=== PATIENT | female | born 1955 | race Caucasian/White ===

== ENCOUNTER 2024-12-01 11:22 | Emergency (ER) | payer MEDICARE, SELFPAY ==
--- NOTE | 2024-12-01 11:32 | ED_ITS ---
HPI - Ear Problem General Chief complaint: Ear Stated complaint: Earache Time Seen by Provider: 12/01/24 11:42 Source: patient and RN notes reviewed Mode of arrival: ambulatory Limitations: no limitations History of Present Illness HPI Narrative: 69-year-old female presents with concern for decreased hearing in the right ear. Reports she saw her doctor because she was having trouble hearing a few months ago and he told her she had a wax buildup. She has been using peroxide at home occasionally without relief. She reports of the last few days she has had some discomfort when she pushes on the tragus. She denies upper respiratory symptoms. She denies drainage med. MD Complaint: ear pain Related Data Home Medications ?Medication ?Instructions ?Recorded ?Confirmed ?Last Taken ?Type Vitamin D (with calcium) 12/01/24 Unknown History levothyroxine 150 mcg tablet mcg 12/01/24 Unknown History lorazepam 1 mg tablet mg 12/01/24 Unknown History meloxicam 15 mg tablet mg 12/01/24 Unknown History metoprolol succinate 25 mg mg PO 12/01/24 Unknown History tablet,extended release 24 hr sertraline 12/01/24 Unknown History sertraline 100 mg tablet mg 12/01/24 Unknown History simvastatin 40 mg tablet mg 12/01/24 Unknown History Allergies Allergy/AdvReac Type Severity Reaction Status Date / Time iv contrast Allergy Intermediate Hives Uncoded 12/01/24 11:41 Review of Systems Review of Systems: CONSTITUTIONAL: Denies malaise, chills, sweats, or fever. EYES: Denies visual changes, redness, or discharge. ENT: Denies rhinorrhea, congestion, sinus pain, and sore throat. Reports decreased hearing and tragal tenderness in the right ear CARDIOVASCULAR: Denies chest pain, palpitations, or edema. RESPIRATORY: Denies cough. Denies dyspnea. GASTROINTESTINAL: Denies abdominal pain, nausea, vomiting, diarrhea SKIN: Denies rash or itching. MUSCULOSKELETAL: Denies myalgia. NEUROLOGIC: Denies headache. All systems reviewed & are unremarkable except as noted in HPI and below PMFSH Comments At time of signature, agree with nursing past medical, surgical, social and family history. There is no relevant family history pertinent to the presenting complaint Exam Narrative: GENERAL: Well-appearing, well-nourished, and in no acute distress. HEAD: Normocephalic EYES: PERRLA, conjunctivae clear ENT: Nares clear. Mucous membranes moist. TM pearly moses with sharp light reflex on the left, right TM not visible due to excess room; no right or left tragal tenderness. NECK: Supple. No lymphadenopathy CHEST: No respiratory distress, speaks in full sentences. HEART: Regular rate and rhythm. No murmur heard. SKIN: Warm, dry, no rash. NEURO: Alert and oriented x3. PSYCH: Normal mood and affect Course Course Emergency Course: Patient is aware of diagnosis, understands and agrees to treatment plan. Anticipatory guidance given. Patient agrees to follow-up as directed and is aware of reasons to seek care at the emergency department. Portions of this record may have been created with voice recognition software Level of Care: [facility] Emergency Department Visit Vital Signs Vital signs: Reviewed. Procedures Ear Wax Removal Right Ear: Ear Wax Removal Date: 12/01/24 Ear Wax Removal Time: 11:53 Cerumenolytic Used: other (Hydrogen peroxide) Results: Re-examined: some cerumen remains TM Examination: TM(s) intact, normal appearance Ear Canal Exam: other (excoriated) Patient Tolerated Procedure: well Complications: no problems Technique: ear canal irrigated and ear canal curetted Additional Comments: Procedure discontinued due to excoriation. Debrox prescribed. Patient reports hearing is better. Medical Decision Making MDM Narrative Medical decision making narrative: I evaluated this in the [facility]. History is obtained from patient who is an independent historian and physical exam was performed.? Available medical records were reviewed. ? Exam findings and relevant testing show no acute concerns or changes; patient is non-toxic appearing and is in no distress. Differential diagnosis considered: Huynh virus, strep pharyngitis, allergic rhinitis, upper respiratory tract infection, sinusitis, rhinosinusitis, nasopharyngitis. viral pharyngitis, otitis media, otitis externa, otitis effusion, cerumen impaction, foreign body. Exam findings show no acute concerns or changes; patient is non-toxic appearing and is in no distress. Patient is appropriate for outpatient treatment and follow-up. ? Differential diagnosis and treatment plan were discussed with the patient. Patient agrees with discussion and after shared medical decision making agrees with plan of care. All questions were answered to the patient's satisfaction. Patient is appropriate for outpatient treatment and follow-up. Critical Care Time Critical Care Time Critical Care Time: No Discharge Plan Discharge Clinical Impression: Cerumen impaction Patient Disposition: Home Condition: Stable Instructions: General Patient Instructions Additional Instructions: Ear wax impaction is when ear wax builds up enough to cause symptoms. Normally, ear wax helps to protect the insides of the ears and prevents injury or infection. But having too much ear wax can cause symptoms such as pain and trouble hearing. The medical term for ear wax is cerumen. The insides of the ears do not usually need to be cleaned. Sticking anything into the ears can push the wax in deeper and cause impaction. How is ear wax impaction treated? There are several treatments to remove impacted ear wax. Treatment is usually only needed if the impaction is causing bothersome symptoms. Treatment is not recommended for removing ear wax in people who have no symptoms, even if their ears are impacted. There are several different ways to remove ear wax: ?Ear drops - Special ear drops can soften ear wax and help it to drain out. Ear drops are not usually safe for people with an ear infection or damage to the eardrum. ?Rinsing - In some cases, a doctor or nurse can remove impacted ear wax by squirting water (or a special liquid) into the ear to rinse it out. ?Special tools - A doctor or nurse might use a special tool to remove ear wax. There are different types of tools that can do this safely. These include small sticks, hooks, and spoons. There are also tools that use suction to pull the wax out. If you have recurrent cerumen impaction and no significant ear disease, you can use hydrogen peroxide to soften the wax so it comes out on its own. Do not put any tools on q-tips into your ears. Please use any drops that may have been prescribed to you. Follow up with your doctor if you have any new symptoms or concerns. Patient Language: Romanian Prescriptions: New Debrox 6.5 % drops 10 drp RIGHT EAR Q12H 4 Days Qty: 15 0RF No Action meloxicam 15 mg tablet sertraline 100 mg tablet levothyroxine 150 mcg tablet metoprolol succinate 25 mg tablet extended release 24 hr PO lorazepam 1 mg tablet sertraline simvastatin 40 mg tablet Vitamin D (with calcium) Follow-up/Referrals: Kathy,Cliff Ulloa MD [Primary Care Provider] - Time of Disposition: 12:30
--- OUTSIDE RECORDS SUMMARY | 2024-12-01 11:35 | XMS_ITS | Encounter Summary ---
Author Organization [facility] Health Address [address] [place] [address] Care Team Providers Care Poultry Tender Name Role Phone Cliff Lowry MD Primary Care Provider [phone] Encounter Details Date Type Department Care Team (Late st Contact Info) Description 08/07/2022 Lab Requisition [facility] [address] [place] [id number] Cm Méndez Jr., MD [address] [place] [address] Social History Tobacco Use Types Packs/Day Years Used Date Smoking Tobacco: Every Day Cigarettes 0.3 50 Smokeless Tobacco: Never Alcohol Use Standard Drinks/Week Comments Yes 0 (1 standard drink = 0.6 oz pur e alcohol) once every 2 months AUDIT-C Answer Date Recorded Q1: How often do you have a drink containing alc ohol? Monthly or less 10/31/2021 Q2: How many drinks containi ng alcohol do you have on a typical day when you are drinking? 1 or 2 10/31/2021 Q3: How often do you have si x or more drinks on one occasion? 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 Answer Date of Assessment Author No 11/01/2021 12:42 PM CDT Daron Viri radha Glez RN * Is person blind or have serious difficulty seeing? Answer Date of Assessment Author No 11/01/2021 12:42 PM CDT Daron Viri radha Glez RN * Does person have serious difficulty walking/climbing stairs? Answer Date of Assessment Author No 11/01/2021 12:42 PM CDT Daron Viri radha Glez RN * Does person have difficulty dressing/bathing? Answer Date of Assessment Author No 11/01/2021 12:42 PM CDT Daron Viri radha Glez RN * Does person have difficulty doing errands alone? Answer Date of Assessment Author Yes 11/01/2021 12:42 PM CDT Viri Neri RN documented as of this encounter Mental Status * Does person have difficulty concentrating/remembering/making decisions? Answer Entry Date Author No 11/01/2021 12:42 PM CDT Viri Neri RN documented in this encounter Plan of Treatment Not on file documented as of this encounter Procedures Procedure Name Priority Date/Time Associated Diagnosis Comments DERMATOPATHOLOGY Routine 08/06/2022 12:0 0 AM CDT documented in this encounter Results * DERMATOPATHOLOGY (08/06/2022 12:00 AM CDT) Case Report Dermatopathology Report Case: [id number] Authorizing Provider: Cm Méndez Jr., MD Collected: 08/06/2022 12:00 AM Ordering Location: [facility] Received: 08/07/2022 01:09 PM Pathologist: Denice Dempsey MD Specimen: Skin, left mid-upper back 3 3:35 PM CDT DERMATOPATHOLOGY LABORATORY Final Diagnosis Specimen A. SKIN, left mid-upper back: EPIDERMOID CYST WITH EVIDENCE OF RUPTURE (L72.0) NOT PRESENT AT MARGIN DERMAL SCAR (L90.5) (see microscopic description) 3 3:35 PM CDT DERMATOPATHOLOGY LABORATORY at 1535 CDT Clinical History Cyst Check margins 3 3:35 PM CDT DERMATOPATHOLOGY LABORATORY Gross Description Specimen A: Received is one formalin filled container labeled with the patient's name and designated left mid-upper back. The specimen consists of a non-oriented ellipse of skin measuring [id number] mm. The epidermal surface is unremarkable. The margin is inked green. The 12 o'clock and 6 o'clock tips are submitted in cassette 1. The remainder of the ellipse is serially sectioned and submitted in cassette 2-4. Jar 0. 3 3:35 PM CDT DERMATOPATHOLOGY LABORATORY Microscopic Description Specimen A. SKIN, left mid-upper back: Within the dermis, there is a space lined by epithelium that resembles normal epidermis and the infundibular portion of the hair follicle. Surrounding this is an infiltrate with neutrophils, histiocytes, and multinucleated giant cells. This lesion is not present at the margin of the specimen. There are fibroblasts and collagen bundles oriented parallel to the skin surface with elongated blood vessels, some of which are oriented perpendicular to the skin surface. These scar-like changes are present at the margin of the specimen. 3 3:35 PM CDT DERMATOPATHOLOGY LABORATORY Disclaimer An external and internal positive and negative controls are appropriate for the histochemical, immunohistochemical and immunofluorescence stain(s) in this case (if any), except where stated explicitly. The performance characteristics of the stain(s) cited in this report were developed and its performance characteristic determined by the Dermatopathology Laboratory at [facility], directed by Dr. Quang Quinones. These tests need not be, and therefore are not, approved by the [place] Food and Drug Administration. The tests are used for clinical purposes. Billing Codes Specimen Charges Stain Charges 89264 1 3 3:35 PM CDT DERMATOPATHOLOGY LABORATORY Embedded Images 3 3:35 PM CDT DERMATOPATHOLOGY LABORATORY Pathology/Cytolog y TISSUE SPECIMEN FROM SKIN / Unknown 08/06/2022 08/07/2022 1:09 PM CDT Cm Méndez Jr., MD LAB - PATHOLOGY/CYTOLOG Y ORDERABLES Final Result DERMATOPATHOLOGY LABORATORY [facility] - Department of Dermatology [facility] Special[facility] [address] [place], [place] [id number] [place] [address] documented in this encounter Visit Diagnoses Not on filedocumented in this encounter Care Teams Poultry Tender Relationship Specialty [place] [address] [address] [facility] [address] [place] [address] PCP - General Internal Medicine 07/31/21 documented as of this encounter
--- OUTSIDE RECORDS SUMMARY | 2024-12-01 11:35 | XMS_ITS | Referral Summary ---
Author Organization [facility] Address [address] [place] [address] Care Team Providers Care Orthoptist Name Role Phone Rolando Patel MD Primary Care Provider + Allergies Active Allergy Reactions Criticality Noted Date Comments Iodinated Contrast Media Other (See comments) Low 10/03/2021 Reports that with IVP dye, she reports that during procedure she broke out in hives Iodine Hives Medium 09/30/2022 Medications HYDROcodone-acet aminophen (NORCO) 5-325 mg per tablet TAKE ONE TABLET BY MOUTH THREE TIMES A DAY NEEDED 05/01/2020 Active cyclobenzaprine (FLEXERIL) 10 mg tablet Take by mouth 3 (three) times a day as needed 03/24/2020 Active hydroCHLOROthiaz rosita (HYDRODIURIL) 25 mg tablet Take 1 tablet (25 mg total) by mouth daily 02/29/2020 Active LORazepam (ATIVAN) 1 mg tablet Take 1 tablet (1 mg total) by mouth 3 (three) times a day as needed 02/24/2020 Active meloxicam (MOBIC) 15 mg tablet Take 1 tablet (15 mg total) by mouth daily 02/29/2020 Active sertraline (ZOLOFT) 100 mg tablet TAKE 1 TABLET BY MOUTH EVERY DAY AT NIGHT 02/24/2020 Active simvastatin (ZOCOR) 40 mg tablet Take 1 tablet (40 mg total) by mouth daily 02/24/2020 Active levothyroxine (SYNTHROID) 150 mcg tablet 08/17/2023 Active metoprolol XL (TOPROL-XL) 25 mg extended release tablet Take 1 tablet (25 mg total) by mouth daily 90 tablet 3 05/07/2024 Active Active Problems Problem Noted Date Diagnosed Date Palpitations 05/07/2024 PVC (premature ventricular contraction) 05/07/20 Primary hypertension 05/07/2024 Mixed hyperlipidemia 05/07/2024 Encounter for screening colonoscopy 05/29/2020 Overview (05/29/2020): Added automatically from request for surgery [id number] Morbid obesity with BMI of 40.0-44.9, adult 04/26 Primary osteoarthritis of left knee 05/22/2020 Social History Tobacco Use Types Packs/Day Years Used Date Smoking Tobacco: Former Smokeless Tobacco: Never Tobacco Cessation:Counseling Given: Not Answered Alcohol Use Standard Drinks/Week Comments Yes 0 (1 standard drink = 0.6 oz pur e alcohol) Comments No Sex and Gender Information Value Date Recorded Sex Assigned at Not on file Legal Sex Female 11:58 PM FIRE OPERATIONS FORESTER Gender Identity Female 11/08/2022 10:05 AM CDT Sexual Orientation Straight 11/08/2022 10 :05 AM CDT Last Filed Vital Signs Vital Sign Reading Time Taken Comments Blood Pressure 145/77 05/07/2024 10:11 AM FIRE OPERATIONS FORESTER Lg. Adult Cuff Pulse 86 05/07/2024 10:11 AM FIRE OPERATIONS FORESTER Temperature 36.3 C (97.4 F) 06/26/2020 11:58 AM FIRE OPERATIONS FORESTER Respiratory Rate 16 05/07/2024 10:1 1 AM FIRE OPERATIONS FORESTER Oxygen Saturation 94% 11/11/2022 12: 59 PM CDT Inhaled Oxygen Concentration - - Weight 84.6 kg (186 lb 6.4 oz) 05/07/2024 10:11 AM FIRE OPERATIONS FORESTER Height 162.6 cm (5' 4) 05/07/2024 10:1 1 AM FIRE OPERATIONS FORESTER Body Mass Index 32 05/07/2024 10:11 AM FIRE OPERATIONS FORESTER Plan of Treatment Not on file Procedures Procedure Name Priority Date/Time Associated Diagnosis Comments DEXA AXIAL SKELETON BONE DENSITY 1 OR MORE SITES Schedule Routine, Read Routine (OP Routine) 11/04/2023 10:40 AM CDT exterminator helper termite (current) use of bisphosphonates SCREENING MAMMOGRAM BILATERAL W MATT Schedule Routine, Read Routine (OP Routine) 06/05/2023 1:21 PM FIRE OPERATIONS FORESTER Encounter for screening mammogram for malignant neoplasm of breast COLONOSCOPY 06/26/2020 9:55 AM FIRE OPERATIONS FORESTER from Last 3 Months or Most Recently Relevant to Health Maintenance Results * Dexa Axial Skeleton Bone Density 1 or 2 Site (11/04/2023 10:40 AM CDT) Anatomical Region Laterality Modality Body N/A Other 11/04/2023 11:2 8 PM CDT Narrative 11/04/2023 11:29 PM CDT EXAM DESCRIPTION: DEXA AXIAL SKELETON BONE DENSITY 1 OR MORE SITES REASON FOR STUDY: 68 y/o year old F with given history of: Z79.83 Osteoporosis screening Post menopausal Ampoule Filler/Model: cashcloud SL (S/N [id number]) CLINICAL INFORMATION: Current height: 63 inches Maximum height: 64 inches Weight: 200 pounds Risk factors: Postmenopausal, secondary osteoporosis, cancer COMPARISON: 04/19/2020 Dissimilar scan types or analysis methods precludes assessment for calculating a significant change. FINDINGS: AP LUMBAR SPINE L1-L4: Total BMD is 1.035 g/cm2 T-score is -0.1 LEFT HIP: Total BMD is 0.814 g/cm2 T-score is -1.0 Femoral neck BMD is 0.634 g/cm2 T-score is -1.9 FRAX: 10 year risk for a major osteoporotic fracture is 10 %, 10 year risk for a hip fracture is 1.7 % IMPRESSION: Low Bone Mass. REFERENCE: Bone mineral density: T-Score: Normal (T-score above or = -1.0) Low bone mass (T-score between -1.0 and -2.5) replaces the previously used term osteopenia Osteoporosis (T-score = or below -2.5) Z-Score: Within the expected range for age (Z-score above -2.0) Below the expected range for age (Z-score is -2.0 or below) Please see below follow up recommendations. Medical evaluation for secondary causes of low bone mineral density may be appropriate. FRAX is a World Health Organization validated fracture risk assessment tool that calculates a person's 10 year probability of a major osteoporosis related fracture and hip fracture. According to the National Osteoporosis Foundation guidelines, postmenopausal women and men age 50 or older with low bone mass and a 10 year probability of a major osteoporosis related fracture = or greater than 20% or a 10 year probability of a hip fracture = or greater than 3% should be considered for pharmacological treatment for the prevention of osteoporosis. For further information, including treatment recommendations, please refer to the 2019 ISCD Official Positions (http://www.iscd.org) and the NOF's Clinician's Guide to Prevention and Treatment of Osteoporosis (http://www.nof.org/professionals/clinical-guidelines) THIS IS AN ELECTRONICALLY VERIFIED FINAL REPORT 11/04/2023 11:29 PM - Electronically signed by Derek Ross M.D. MF: ROBERT Report ID: [id number] Reading Location: [place] [address] Procedure Note Derek Ross MD - 11/04/2023 EXAM DESCRIPTION: DEXA AXIAL SKELETON BONE DENSITY 1 OR MORE SITES REASON FOR STUDY: 68 y/o year old F with given history of: Z79.83 Osteoporosis screening Post menopausal Ampoule Filler/Model: cashcloud SL (S/N [id number]) CLINICAL INFORMATION: Current height: 63 inches Maximum height: 64 inches Weight: 200 pounds Risk factors: Postmenopausal, secondary osteoporosis, cancer COMPARISON: 04/19/2020 Dissimilar scan types or analysis methods precludes assessment for calculating a significant change. FINDINGS: AP LUMBAR SPINE L1-L4: Total BMD is 1.035 g/cm2 T-score is -0.1 LEFT HIP: Total BMD is 0.814 g/cm2 T-score is -1.0 Femoral neck BMD is 0.634 g/cm2 T-score is -1.9 FRAX: 10 year risk for a major osteoporotic fracture is 10 %, 10 year risk for ahip fracture is 1.7 % IMPRESSION: Low Bone Mass. REFERENCE: Bone mineral density: T-Score: Normal (T-score above or = -1.0) Low bone mass (T-score between -1.0 and -2.5) replaces thepreviously used term osteopenia Osteoporosis (T-score = or below -2.5) Z-Score: Within the expected range for age (Z-score above -2.0) Below the expected range for age (Z-score is -2.0 or below) Please see below follow up recommendations. Medical evaluation forsecondary causes of low bone mineral density may be appropriate. FRAX is a World Health Organization validated fracture risk assessmenttool that calculates a person's 10 year probability of a major osteoporosisrelated fracture and hip fracture. According to the National OsteoporosisFoundation guidelines, postmenopausal women and men age 50 or older with low bonemass and a 10 year probability of a major osteoporosis related fracture = or greater than 20% or a 10 year probability of a hip fracture = or greaterthan 3% should be considered for pharmacological treatment for the preventionof osteoporosis. For further information, including treatment recommendations, please referto the 2019 ISCD Official Positions (http://www.iscd.org) and the NOF's Clinician's Guide to Prevention and Treatment of Osteoporosis (http://www.nof.org/professionals/clinical-guidelines) THIS IS AN ELECTRONICALLY VERIFIED FINAL REPORT 11/04/2023 11:29 PM - Electronically signed by Derek Ross M.D. MF: ROBERT Report ID: [id number] Reading Location: [place] [address] Rolando Patel MD IM DXA PROCEDURES Final Result * Screening Mammogram Bilateral W Matt (06/05/2023 1:21 PM FIRE OPERATIONS FORESTER) Anatomical Region Laterality Modality Breast Bilateral Mammography 06/05/2023 1:32 PM FIRE OPERATIONS FORESTER Impressions 06/05/2023 1:32 PM FIRE OPERATIONS FORESTER There is no mammographic evidence of malignancy. A 1 year screening mammogram is recommended. BI-RADS: 1 - Negative. The patient has been or will be contacted. The patient will be entered into a reminder system with a target due date of 1 year for her next mammogram. Electronically signed by: EMERSON Padilla 06/05/2023 1:32 PM FIRE OPERATIONS FORESTER EXAMINATION: SCREENING MAMMOGRAM BILATERAL W MATT ORDERING HEALTHCARE PROVIDER: ROLANDO PATEL HISTORY: Routine screening mammography. COMPARISON: 06/03/2022, 04/19/2020. TECHNIQUE: CC and MLO views of both breasts were obtained with digital technique using digital breast tomosynthesis with C view. Computer aided detection was utilized. FINDINGS: DENSITY: The breasts have scattered areas of fibroglandular density. BREASTS: There is no new suspicious finding in either breast on mammogram. us Rolando Patel MD IMG MAMMO PROCEDURES Fin al Result * COLONOSCOPY (06/26/2020 9:55 AM FIRE OPERATIONS FORESTER) Anatomical Region Laterality Modality Other Narrative Procedure Note Javid Flood MD - 06/26/2020 9:55 AM CST [facility] Patient Name: Charlotte Alcantara Procedure Date: 06/26/2020 9:55 AM Date of : 1955 Admit Type: Outpatient Age: 64 Gender: Female Attending MD: Javid Flood M.D. Room: [facility] ENDOSCOPY ROOM 2 Note Status: Finalized Patient Profile: Refer to note in patient chart for documentation of history and physical. Procedure: Colonoscopy Indications: High risk colon cancer surveillance: Personalhistory of colonic polyps, Last colonoscopy: 2014 Referring MD: Rolando Patel M.D. Providers: Javid Flood M.D. Impression: - Hemorrhoids found on perianal exam. - Diverticulosis in the sigmoid colon and in the descending colon. - The examination was otherwise normal. - No specimens collected. Recommendation: - Discharge patient to home. - Resume previous diet. - Continue present medications. - Repeat colonoscopy in 5 years for surveillance. - Return to primary care physician as previously scheduled. Medicines: Propofol per Anesthesia Complications: No immediate complications. Estimated Blood Loss: Estimated blood loss: none. Procedure: Pre-Anesthesia Assessment: - This assessment was completed [Time ofAssessment] prior to the administration of sedation. The benefits, risks and alternatives of theprocedure and sedation were discussed and informed consentwas obtained. All questions were answered. Please referto the signed informed consent document in the medical record. The bowel preparation used was Miralax via single dose instruction. The bowel preparation used was bisacodyl tablets [Single vs Split Dose]. The scope was passed under direct vision. TheColonoscope [id number] was introduced through the anus and advanced to the the cecum, identified by appendiceal orifice and ileocecal valve. The colonoscopy was unusually difficult due to multiple diverticula in the colon, poor bowel prep and the patient's body habitus. The patient tolerated the procedure well. The quality of the bowelpreparation was adequate to identify polyps 6 mm and larger in size. Findings: Hemorrhoids were found on perianal exam. Multiple small and large-mouthed diverticula were found in thesigmoid colon and descending colon. The exam was otherwise without abnormality. Electronically signed by Javid Flood M.D. Javid Flood M.D. 06/26/2020 11:30:19 AM Number of Addenda: 0 Note Initiated On: 06/26/2020 9:55 AM Procedure Code(s): --- Professional --- G0105, Colorectal cancer screening; colonoscopy on individual at high risk Diagnosis Code(s): --- Professional --- K57.30, Diverticulosis of large intestine without perforation orabscess without bleeding K64.9, Unspecified hemorrhoids Z86.010, Personal history of colonic polyps CPT copyright 2019 [employer]. All rights reserved. The codes documented in this report are preliminary and upon division roadmaster reviewmay be revised to meet current compliance requirements. Recognized by the [place] [employer] for promoting quality in endoscopy Javid Flood MD ENDOSCOPY PROCEDURES Final Re sult from Last 3 Months or Most Recently Relevant to Health Maintenance Insurance MEDICARE [facility] Address: [facility] [address] [place] [address] [employer] SENIOR SUPPLEMENT COMMERCIAL GENERIC MEDICARE [facility] [address] [place] [id number] MEDICARE [employer] SENIOR SUPPLEMENT Advance Directives For more information, please contact: [phone] * Full Code (Latest Code Status on File) Date Activated Date Inactivated Comments 06/26/2020 10:03 AM 06/26/2020 4:27 PM Care Teams Orthoptist Relationship Specialty [place] [id number] [address] [facility] [place] [address] PCP - General Internal Medicine 04/12/20
--- OUTSIDE RECORDS SUMMARY | 2024-12-01 11:35 | XMS_ITS | Clinical Summary ---
Author Organization [facility] Address [address] [place] [address] Care Team Providers Care Egg Sorter Name Role Phone Cliff Patel MD Primary Care Provider + Allergies [...] (05/29/2020): Added automatically from request for surgery [id number] Morbid obesity with BMI of 40.0-44.9, adult 04/26 Primary osteoarthritis of left knee 05/22/2020 Surgical History Surgery Date Site/Laterality Comments KNEE ARTHROSCOPY THYROID LOBECTOMY COLONOSCOPY 05/26/2014 - 05/25/2015 Medical History Medical History Date Comments Depression Infectious viral hepatitis Thyroid disease Cancer (HCC) Thyroid cancer (HCC) 2002 Smoking previous Colon polyp Chronic constipation Hyperlipidemia Hypothyroidism Family History Medical History Relation Name Comments Cancer Other Hypertension Other Relation Name Status Comments Other Social History Tobacco Use Types Packs/Day Years Used Date Smoking Tobacco: Former Smokeless Tobacco: Never Tobacco Cessation:Counseling Given: Not Answered Alcohol Use Standard Drinks/Week Comments Yes 0 (1 standard drink = 0.6 oz pur e alcohol) Comments No Sex and Gender Information Value Date Recorded Sex Assigned at Not on file Legal Sex Female 11:58 PM SEASONING MIXER Gender Identity Female 11/08/2022 10:05 AM CDT Sexual Orientation Straight 11/08/2022 10 :05 AM CDT Obstetrics History Para Term AB IAB SAB Ectopic Multiple Livin g Live Births 1 1 1 Date Outcome GA Total Labor Labor/2nd/3rd Weight Sex Type Anes PTL Rosanne A1 A5 Name Clin Term Last Filed Vital Signs Vital Sign Reading Time Taken Comments Blood Pressure 145/77 05/07/2024 10:11 AM SEASONING MIXER Lg. Adult Cuff Pulse 86 05/07/2024 10:11 AM SEASONING MIXER Temperature 36.3 C (97.4 F) 06/26/2020 11:58 AM SEASONING MIXER Respiratory Rate 16 05/07/2024 10:1 1 AM SEASONING MIXER Oxygen Saturation 94% 11/11/2022 12: 59 PM CDT Inhaled Oxygen Concentration - - Weight 84.6 kg (186 lb 6.4 oz) 05/07/2024 10:11 AM SEASONING MIXER Height 162.6 cm (5' 4) 05/07/2024 10:1 1 AM SEASONING MIXER Body Mass Index 32 05/07/2024 10:11 AM SEASONING MIXER Plan of Treatment Health Maintenance Due Date Last Done Comments Depression Screening 1955 Hepatitis C Screening 1955 DTaP/Tdap/Td Vaccine (1 - Tdap) 1965 Hepatitis B Screening 1972 Zoster Vaccine (1 of 2) 2004 Well Visit 65+ 08/29/2019 Pneumococcal vaccine 65+ (2 of 2 - PPSV23) 03/02/2021 03/02/2020 Fall Risk Assessment 06/26/2021 06/26/2020 Breast Cancer Screening-Mammogram 06/05/2024 06/05/2023, 06/03/2022, 04/19/2020 Influenza Vaccine (#1) 2025 03/02/2020 Osteoporosis Screening-Bone Density Scan 11/03/2025 11/04/2023, 04/19/2020 Colon Cancer Screening-Colonoscopy 06/26/20302020 Procedures Procedure Name Priority Date/Time Associated Diagnosis Comments DEXA AXIAL SKELETON BONE DENSITY 1 OR MORE SITES Schedule Routine, Read Routine (OP Routine) 11/04/2023 10:40 AM CDT 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 MF: ROBERT Report ID: [id number] Reading Location: [place] [address] Procedure Note Derek Ross MD - 11/04/2023 EXAM DESCRIPTION: DEXA AXIAL SKELETON BONE DENSITY 1 OR MORE SITES REASON FOR STUDY: 68 y/o year old F with given history of: Z79.83 Osteoporosis screening Post menopausal Food And Drug Inspector/Model: [employer] (S/N [id number]) CLINICAL INFORMATION: Current height: 63 inches Maximum [...] Derek Ross M.D. MF: ROBERT Report ID: [id number] Reading Location: [place] [address] us Cliff Patel MD IMG DXA PROCEDURES Final Result * Screening Mammogram Bilateral W Matt (06/05/2023 1:21 PM SEASONING MIXER) Anatomical Region Laterality Modality Breast Bilateral Mammography 06/05/2023 1:32 PM SEASONING MIXER Impressions 06/05/2023 1:32 PM SEASONING MIXER There is no mammographic evidence of malignancy. A 1 year screening mammogram is recommended. BI-RADS: 1 - Negative. The patient has been or will be contacted. The patient will be entered into a reminder system with a target due date of 1 year for her next mammogram. Electronically signed by: EMERSON Padilla 06/05/2023 1:32 PM SEASONING MIXER EXAMINATION: SCREENING MAMMOGRAM BILATERAL W MATT ORDERING HEALTHCARE PROVIDER: CLIFF PATEL HISTORY: Routine screening mammography. COMPARISON: 06/03/2022, 04/19/2020. TECHNIQUE: CC and MLO views of both breasts were obtained with digital technique using digital breast tomosynthesis with C view. Computer aided detection was utilized. FINDINGS: DENSITY: The breasts have scattered areas of fibroglandular density. BREASTS: There is no new suspicious finding in either breast on mammogram. us Cliff Patel MD IMG MAMMO PROCEDURES Fin al Result * COLONOSCOPY (06/26/2020 9:55 AM SEASONING MIXER) Anatomical Region Laterality Modality Other Narrative Procedure Note Javid Flood MD - 06/26/2020 9:55 AM CST [facility] Patient Name: Charlotte Alcantara Procedure Date: 06/26/2020 9:55 AM Date of : 1955 Admit Type: Outpatient Age: 64 Gender: Female Attending MD: Javid Flood M.D. Room: [facility] ENDOSCOPY ROOM 2 Note Status: Finalized Patient Profile: Refer to note in patient chart for documentation of history and physical. Procedure: Colonoscopy Indications: High risk colon cancer surveillance: Personalhistory of colonic polyps, Last colonoscopy: 2014 Referring MD: Cliff Patel M.D. Providers: Javid Flood M.D. Impression: [...] scope was passed under direct vision. TheColonoscope [id number] was introduced through the anus and advanced [...] history of colonic polyps CPT copyright 2019 [employer]. All rights reserved. The codes documented in this report are preliminary and upon service desk associate reviewmay be revised to meet current compliance requirements. Recognized by the [place] [employer] for promoting quality in endoscopy Javid Flood MD ENDOSCOPY PROCEDURES Final Re sult from Last 3 Months or Most Recently Relevant to Health Maintenance Insurance MEDICARE [employer] SENIOR SUPPLEMENT COMMERCIAL GENERIC MEDICARE MEDICARE [employer] SENIOR SUPPLEMENT Advance Directives For more information, please contact: [phone] * Full Code (Latest Code Status on File) Date Activated Date Inactivated Comments 06/26/2020 10:03 AM 06/26/2020 4:27 PM Care Teams Egg Sorter Relationship Specialty [place] [id number] [place] [address] PCP - General Internal Medicine 04/12/20
--- OUTSIDE RECORDS SUMMARY | 2024-12-01 11:35 | XMS_ITS | Clinical Summary ---
Author Organization [facility] Address [address] [place] [address] Care Team Providers Care Rivet Hole Puncher Name Role Phone Cliff Lowry MD Primary Care Provider [phone] [facility],non-owned Affiliates and Associated Physician Practices is amultiple site organization consisting of ambulatory clinics and hospital sitesin [place], [place], [place] and [place]. This disclosure is being madepursuant to the Care Everywhere program and may not contain all information available regarding this patient. Last updated 18.[facility] Allergies Active Allergy Reactions Criticality Noted Date Comments Contrast-Iodinated Agents For Ct/Other Other 10/03/2021 Reports that with IVP dye, she reports that during procedure she broke out in hives Medications * Be aware that medications may not be up to date on this document. Alwaysverify current medications with the patient. cyclobenzaprine (FLEXERIL) 10 MG tablet Take 10 mg by mouth 3 times daily as needed 2 Active hydroCHLOROthia zide (HYDRODIURIL) 25 MG tablet 2 Active levothyroxine (SYNTHROID) 100 MCG tablet 2 Active LORazepam (ATIVAN) 1 MG tablet Take 1 mg by mouth 3 times daily as needed 1 Active meloxicam (MOBIC) 15 MG tablet 2 Active sertraline (ZOLOFT) 100 MG tablet 150 mg 2 Active simvastatin (ZOCOR) 40 MG tablet 2 Active Cholecalciferol (VITAMIN D3 PO) Take 1,000 Units by mouth once daily Active Pyridoxine HCl (VITAMIN B6 PO) Take 100 mg by mouth once daily Active Multiple Vitamins-Minera ls (ZINC PO) Take 50 mg by mouth once daily Active NON FORMULARY REQUEST 500 mg once daily Vitamin C 500 Complex with Calcium Active HYDROcodone-mesfin taminophen (Ambler) 5-325 MG tablet Take 1 (one) tablet by mouth every 12 hours as needed for Pain LAST REFILL ON THIS MEDICATION 14 tablet 2 Active Active Problems Problem Noted Date Diagnosed Date History of left knee replacement 11/23/2021 Primary osteoarthritis of left knee 05/22/2020 Resolved Problems Problem Noted Date Diagnosed Date Resolved Date Stomach pain 10/31/2021 12/19/2021 Social History Tobacco Use Types Packs/Day Years Used Date Smoking Tobacco: Every Day Cigarettes 0.3 50 Smokeless Tobacco: Never Tobacco Cessation:Ready to Q uit: Yes; Counseling Given: Yes Alcohol Use Standard Drinks/Week Comments Yes 0 [...] PM CDT 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 Gender Identity Female 11/08/2021 12:26 PM CDT Sexual Orientation Straight 11/08/2021 12 :26 PM CDT Last Filed Vital Signs Vital Sign Reading Time Taken Comments Blood Pressure 129/55 11/01/2021 12:15 PM CDT Pulse 68 11/01/2021 12:15 PM CDT Temperature 37 C (98.6 F) 11/01/2021 12:15 PM CDT Respiratory Rate 18 11/01/2021 12:1 5 PM CDT Oxygen Saturation 96% 11/01/2021 12: 15 PM CDT Inhaled Oxygen Concentration - - Weight 90.2 kg (198 lb 12.8 oz) 10/31/2021 7:43 AM CDT Height 160 cm (5' 3) 10/31/2021 7:43 AM CDT Body Mass Index 35.22 10/31/2021 7:43 AM CDT Plan of Treatment Health Maintenance Due Date Last Done Comments BONE DENSITY TESTING 1954 COLOGUARD (AGES 45-75) - COL ON CA SCREENING 1954 COLON MONITORING 1954 COLONOSCOPY - COLON CA SCREENING 1954 CT COLONOGRAPHY - COLON CA SCREENING 1954 Colorectal Cancer Screening 1954 FIT - COLON CA SCREENING 1954 FLEX SIG - COLON CA SCREENING 1954 MAMMOGRAM 1954 MEDICARE AWV 12 MONTHS 1954 HEPATITIS C SCREENING 08/23/1972 DTAP/TDAP/TD VACCINES (1 - Tdap) 1973 PNEUMOCOCCAL VACCINE 50+ (1 of 2 - PCV) 1973 ZOSTER VACCINE (1 of 2) 2004 COVID-19 VACCINE (4 - 2023-2 5 season) 2024 04/06/2021, 08/01/2020, 07/04/2020 DEPRESSION SCREENING 05/26/2024 SCREENING FOR DIABETES 10/03/2024 10/03/2021 INFLUENZA VACCINE (#1) 2025 , 03/02/2020 Respiratory Syncytial Virus (RSV) Vaccine Pt: or over 60 yrs (1 - 1-dose 75+ series) 2029 HEPATITIS B VACCINE Aged Out No longe r eligible based on patient's age to complete this topic HIB VACCINE Aged Out No longer eligi ble based on patient's age to complete this topic HPV VACCINE Aged Out No longer eligi ble based on patient's age to complete this topic MENINGOCOCCAL (Group B) VACCINE SHARED DECISION-MAKING Aged Out No longer eligible based on patient's age to complete this topic MENINGOCOCCAL GROUPS A/C/Y/W VACCINE Aged Out No longer eligible b ased on patient's age to complete this topic Medical Devices Implanted Type Area Wood Room Hand Device Identifier Shelf Expiration Date Model / Serial / Lot Cmnt Bone Djo Srg Cblt 40gm Hvisc Strl Implanted:Qty: 1 on 10/31/2021 by Prosper Kerr MD at [facility] Left: Knee [employer] 11/30/2022 [id number] / / [id number] Cmpnt Fem Kn Lt Cr Cmnt Prm Vngrd Intlk 65 Mm Implanted:Qty: 1 on 10/31/2021 by Prosper Kerr MD at [facility] Left: Knee [employer] 08/31/2022 [id number] / / [id number] Cmpnt Ptlr 28mm 1 Pg Wire Ascnt Arcm Kn Implanted:Qty: 1 on 10/31/2021 by Prosper Kerr MD at [facility] Left: Knee [employer] 09/30/2026 [id number] / / [id number] Tray Tib 71mm Kn Cocr I Beam Implanted:Qty: 1 on 10/31/2021 by Prosper Kerr MD at [facility] Left: Knee [employer] 08/01/2031 [id number] / / [id number] Brng 64vac01ie Vngrd Arcm Kn Ant Stab Implanted:Qty: 1 on 10/31/2021 by Prosper Kerr MD at [facility] Left: Knee [employer] 08/31/2026 [id number] / / [id number] Procedures Procedure Name Priority Date/Time Associated Diagnosis Comments COMPREHENSIVE METABOLIC PANEL STAT 10/03/2021 1:22 PM CDT Preoperative examination from Last 3 Months or Most Recently Relevant to Health Maintenance Results * (ABNORMAL) COMPREHENSIVE METABOLIC PANEL (10/03/2021 1:22 PM CDT) [facility] Glucose 103 70 - 105 mg/dL 10/03/2021 1:47 PM CDT [facility] Sodium 141 136 - 145 mmol/L 10/03/2021 1:47 PM CDT [facility] Potassium 3.7 3.5 - 5.1 mmol/L 10/03/2021 1:47 PM CDT [facility] Chloride 103 98 - 107 mmol/L 10/03/2021 1:47 PM CDT [facility] CO2 27 23 - 31 mmol/L 10/03/2021 1:47 PM CDT [facility] Calcium 9.6 8.4 - 10.4 mg/dL 10/03/2021 1:47 PM CDT [facility] Anion Gap 11 8 - 18 mmol/L 10/03/2021 1:47 PM CDT [facility] BUN 28(H) 9.8 - 20.1 mg/dL 10/03/2021 1:47 PM CDT [facility] Creatinine 0.74 0.57 - 1.11 mg/dL 10/03/2021 1:47 PM CDT [facility] Alkaline Phosphatase 61 40 - 150 U/L 10/03/2021 1:47 PM CDT [facility] ALT 20 0 - 61 U/L 10/03/2021 1:47 PM CDT [facility] AST 25 5 - 34 U/L 10/03/2021 1:47 PM CDT [facility] Protein Total 7.4 6.4 - 8.3 gm/dL 10/03/2021 1:47 PM CDT [facility] Albumin 4.5 3.2 - 4.6 gm/dL 10/03/2021 1:47 PM CDT [facility] Bilirubin Total 0.5 0.2 - 1.2 mg/dL 10/03/2021 1:47 PM CDT [facility] eGFR by CKD-EPI 89(L) >=90 mL/min/1.7 3 m2 10/03/2021 1:47 PM CDT [facility] Blood BLOOD SPECIMEN / Unknown Venipuncture / Unknown 10/03/2021 1:22 PM CDT 10/03/2021 1:31 PM CDT Narrative [facility] - 10/03/2021 1:47 PM CDT eGFR result was calculated using the updated CKD-EPI Creatinine Equations (2020). Prior to go live 2021 the eGFR was calculated using the MDRD calculation. Please note Reference Range change. us Lisa Blum DENTAL MOLD MAKER-LOAD CHECKER LAB - CHEMISTRY OR DERABLES Final Result [facility] [address] [place] [address] from Last 3 Months or Most Recently Relevant to Health Maintenance [place] [address] [address] MEDICARE [employer] Advance Directives * Full Code (Latest Code Status on File) Date Activated Date Inactivated Comments 10/31/2021 1:47 PM 11/01/2021 3:03 PM Care Teams Rivet Hole Puncher Relationship Specialty [place] [address] [facility] [place] [address] PCP - General Internal Medicine 07/31/21
--- OUTSIDE RECORDS SUMMARY | 2024-12-01 11:35 | XMS_ITS | Encounter Summary ---
Author Organization [facility] Address [address] [place] [address] Care Team Providers Care Candle Cutter Name Role Phone Cliff Chavez MD Primary Care Provider + Reason for Visit * Reason Onset Date Comments Scheduling Appointments 04/18/2020 DEXA rylan t reminder Encounter Details Date Type Department Care Team (Late st Contact Info) Description 04/18/[address] [facility] [address] [place] [id number] [address] Scheduling Appointments (DEXA appt reminder) Social History Tobacco Use Types Packs/Day Years Used Date Smoking Tobacco: Former Smokeless Tobacco: Never Alcohol Use Standard Drinks/Week Comments Yes 0 (1 standard drink = 0.6 oz pur e alcohol) Comments Unknown Sex and Gender Information Value Date Recorded Sex Assigned at Not on file 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
[2024-12-01 11:43] VITALS: BP 132/54; PULSE 68; RESP 18; TEMP 36.6; O2SAT 99
== END 2024-12-01 12:31 | disposition home or self-care (01) ==
PROVIDERS: Emergency Provider Nurse Practitioner; PCP Internal Medicine Geriatric Medicine
DX: H61.21 Impacted cerumen, right ear (principal); I10 Essential (primary) hypertension; E78.00 Pure hypercholesterolemia, unspecified
CPT/HCPCS: 69210; 99213; G0463